=== PATIENT | female | born 1980 | race Caucasian/White ===

== ENCOUNTER 2018-02-20 15:08 | Emergency (ER) | payer SELFPAY ==
[2018-02-20 15:11] VITALS: BP 149/88; PULSE 97; RESP 18; TEMP 97.8; O2SAT 100
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
== END 2018-02-20 15:36 | disposition left against medical advice (07) ==
LOC: NEPD 15:08
DX: R51 Headache (principal)
CPT/HCPCS: 99281